=== PATIENT | male | born 1950 | race Caucasian/White ===

== ENCOUNTER 2018-05-07 19:53 | Observation (INO) | payer MEDICARE, OTHER ==
[2018-05-07 19:53] VITALS: BMI 31.9
[2018-05-07 22:56] LABS: BASO # 0.1 K/uL (0.0-0.2); EOS # 0.3 K/uL (0.0-0.7); EOS % 3.6 % (0.0-4.0); HEMOGLOBIN 14.8 g/dL (12.0-18.0); LYMPH # 2.9 K/uL (1.0-4.3); LYMPH % 32.7 % (20.0-40.0); MEAN CELL VOLUME 87.4 fl (80.0-94.0); MEAN CORPUSCULAR HEMOGLOBIN 29.3 pg (27.0-31.0); MEAN CORPUSCULAR HGB CONC 33.5 g/dL (33.0-37.0); MEAN PLATELET VOLUME 8.5 fl (7.2-11.7); MONO # 1.1 K/uL (0.0-0.8); MONO % 12.3 % (0.0-10.0); NEUT # 4.5 K/uL (1.8-7.0); NEUT % 50.4 % (50.0-75.0); NRBC % 0.1 % (0.0-0.0); RBC 5.04 Mil/uL (4.40-5.90); RED CELL DISTRIBUTION WIDTH 13.7 % (11.5-14.5); WHITE BLOOD COUNT 8.9 K/uL (4.8-10.8)
[2018-05-07 23:04] LABS: INR 1.1; PROTHROMBIN TIME 12.1 Seconds (9.8-13.1)
[2018-05-07 23:06] LABS: PARTIAL THROMBOPLASTIN TIME 35.7 Seconds (25.6-37.1)
[2018-05-07 23:09] LABS: D DIMER < 200 ng/mlDDU (0-230)
--- NOTE | 2018-05-07 23:12 | ED PDOC ---
HPI: Chest Pain Time Seen by Provider: 05/07/18 21:47 Chief Complaint (Nursing): Chest Pain Chief Complaint (Provider): Chest Pain History Per: Patient History/Exam Limitations: no limitations Onset/Duration Of Symptoms: Days (x2) Current Symptoms Are (Timing): Still Present Additional Complaint(s): 67 year old Citizen Of [place] male with past history of liver cancer and hypertension, presents to the emergency department with a complaint of left-sided chest pain associated with shortness of breath for 2 days. He denies radiation of pain, nausea, vomiting, or diaphoresis. PCP: Dr. Braydon Gutierrez Past Medical History Reviewed: Historical Data, Nursing Documentation, Vital Signs Vital Signs: Last Vital Signs Temp 98.4 F 05/07/18 20: Pulse 62 05/07/18 20:19 Resp 16 05/07/18 20:19 BP 135/77 05/07/18 20: Pulse Ox 95 05/07/18 20:19 - Medical History PMH: Arthritis, Depression, HTN Denies: Chronic Kidney Disease - Surgical History Surgical History: Cholecystectomy Denies: Pacemaker - Family History Family History: States: Unknown Family Hx - Social History Current smoker - smoking cessation education provided: No Alcohol: None Drugs: Denies - Home Medications Home Medications: Ambulatory Orders Medication Instructions Recorded Bimatoprost [Lumigan] 1 drop OU HS 03/02/12 Bisoprolol 5 mg PO DAILY 03/02/12 Mycophenolate Mofetil [Cellcept] 500 mg PO BID 03/02/12 Cyclosporine, Modified [Neoral] 50 mg PO BID 12/07/12 Vitamin B Complex & Vitamin C 1 tab PO DAILY 12/07/12 [Strovite] Tamsulosin [Flomax] 0.4 mg PO DAILY 04/22/13 Amlodipine Besylate/Benazepril 5 mg PO DAILY 06/03/16 [Amlodipine-Benazepril 2.5-10] Aspirin [Low Dose Aspirin EC] 81 mg PO DAILY 06/03/16 Buspirone HCl 10 mg PO DAILY 06/03/16 Cholecalciferol (Vitamin D3) 1,000 unit PO DAILY 06/03/16 [Children's Vitamin D3] Citalopram Hydrobromide [Celexa] 20 mg PO DAILY 06/03/16 Olopatadine HCl [Pazeo] 1 drp OU DAILY 06/03/16 [id number] Ethyl Esters 1 GM 1 gm PO QID 06/03/16 [Lovaza] Omeprazole 40 mg PO DAILY 06/03/16 Linagliptin [Tradjenta] 5 mg PO DAILY 10/19/16 Ketorolac Tromethamine [Toradol] 10 mg PO TID PRN #12 tab 12/25/16 diaZEpam [Valium] 2 mg PO TID PRN #12 tab 12/25/16 Cyclobenzaprine [Cyclobenzaprine 10 mg PO TID PRN #6 tab 08/02/17 HCl] - Allergies Allergies/Adverse Reactions: Allergies Allergy/AdvReac Type Severity Reaction Status Date / Time codeine Allergy ANAPHYLAXIS Verified 08/01/17 22:06 Review of Systems ROS Statement: Except As Marked, All Systems Reviewed And Found Negative Constitutional: Negative for: Sweats Cardiovascular: Positive for: Chest Pain (left-sided) Respiratory: Positive for: Shortness of Breath Gastrointestinal: Negative for: Nausea, Vomiting Physical Exam - Reviewed Nursing Documentation Reviewed: Yes Vital Signs Reviewed: Yes - Physical Exam Appears: Positive for: Well, Non-toxic, No Acute Distress Head Exam: Positive for: ATRAUMATIC, NORMAL INSPECTION, NORMOCEPHALIC Skin: Positive for: Normal Color Eye Exam: Positive for: Normal appearance, EOMI, PERRL ENT: Positive for: Normal ENT Inspection Neck: Positive for: Normal, Supple Cardiovascular/Chest: Positive for: Regular Rate, Rhythm, Chest Non Tender. Negative for: Murmur Respiratory: Positive for: Normal Breath Sounds. Negative for: Wheezing, Respiratory Distress Gastrointestinal/Abdominal: Positive for: Normal Exam, Soft. Negative for: Tenderness Back: Positive for: Normal Inspection Extremity: Positive for: Normal ROM (upper/lower). Negative for: Pedal Edema, Calf Tenderness Neurologic/Psych: Positive for: Alert, Oriented. Negative for: Motor/Sensory Deficits, Aphasia - Laboratory Results Result Diagrams: 05/07/18 22:45 05/07/18 22:45 Lab Results: PT 12.1 Seconds (9.8-13.1) 05/07/18 22:45 INR 1.1 05/07/18 22:45 APTT 35.7 Seconds (25.6-37.1) 05/07/18 22:45 D-Dimer, Quantitative < 200 ng/mlDDU (0-230) 05/07/18 22:45 - ECG O2 Sat by Pulse Oximetry: 95 (RA) Pulse Ox Interpretation: Normal Medical Decision Making Medical Decision Making: Initial Impression: 67 year old Citizen Of [place] male with chest pain Initial Plan: * EKG * Labs * CXR 23:33 Chest x-ray reviewed by this provider; reveals no active disease Labs reviewed and reveal no clinically significant abnormalities Case discussed with Dr. Gutierrez who will admit for chest pain observation. Scribe Attestation: Documented by Otilia Carlos, acting as a scribe for Danis Calderon MD. Provider Scribe Attestation: All medical record entries made by the Scribe were at my direction and personally dictated by me. I have reviewed the chart and agree that the record accurately reflects my personal performance of the history, physical exam, medical decision making, and the department course for this patient. I have also personally directed, reviewed, and agree with the discharge instructions and disposition. Disposition - Clinical Impression Clinical Impression: Acute chest pain - Patient ED Disposition Is Patient to be Admitted: Yes - Disposition Disposition Time: 23:33 Condition: FAIR - Pt Status Changed To: Hospital Disposition Of: Observation
[2018-05-07 23:21] LABS: ALB/GLOB RATIO 1.4 (1.0-2.1); ALBUMIN 4.4 g/dL (3.5-5.0); ALT/SGPT 29 U/L (21-72); AST/SGOT 30 U/L (17-59); BLOOD UREA NITROGEN 23 mg/dl (9-20); GFR NON-AFRICAN AMERICAN > 60
[2018-05-08] MEDS ORDERED: Pneumococcal 23-Valent Vaccine IM ONE (06:00)
[2018-05-08] MEDS ORDERED: Sodium Chloride 0.9% 50 ML IV ONE (07:20)
[2018-05-08] MEDS ORDERED: Iodixanol 320 MG/ML 100 ML BOTTLE IV ONE (07:20)
--- NOTE | 2018-05-08 08:25 | RAD ---
Date of service: 05/07/2018 HISTORY: chest pain COMPARISON: No prior. FINDINGS: LUNGS: No active pulmonary disease. PLEURA: No significant pleural effusion identified, no pneumothorax apparent. Left hemidiaphragmatic calcified pleural plaque suspect CARDIOVASCULAR: No aortic atherosclerotic calcification present. Mild cardiomegaly probable no pulmonary vascular congestion. OSSEOUS STRUCTURES: Mild thoracic spondylosis. Bilateral shoulder arthrosis. VISUALIZED UPPER ABDOMEN: Normal. OTHER FINDINGS: None. IMPRESSION: No suspect acute cardiopulmonary pathology noted.
[2018-05-08] MEDS ORDERED: BENAZEPRIL PO SCH (09:00)
[2018-05-08] MEDS ORDERED: AMLODIPINE BESYLATE PO SCH (09:00)
[2018-05-08] MEDS: Cholecalciferol 1,000 INTLU TAB PO SCH (10:06)
[2018-05-08] MEDS: Multivitamin With Minerals Tab PO SCH (10:08)
[2018-05-08] MEDS: Pantoprazole 40 mg EC Tab PO SCH (10:08)
[2018-05-08] MEDS: Olopatadine 0.1% Opht SOLN OU SCH (10:08)
--- NOTE | 2018-05-08 10:38 | CT ---
Date of service: 05/08/2018 PROCEDURE: CT Chest with contrast (Pulmonary Angiogram) HISTORY: R/O PE COMPARISON: None available. TECHNIQUE: Axial computed tomography images were obtained of the chest in the pulmonary arterial phase of enhancement. Coronal and sagittal reformatted images were created and reviewed. Intravenous contrast dose: Visipaque 320, 99 cc Radiation dose: Total exam DLP = 390.14 mGy-cm. This CT exam was performed using one or more of the following dose reduction techniques: Automated exposure control, adjustment of the mA and/or kV according to patient size, and/or use of iterative reconstruction technique. FINDINGS: PULMONARY ARTERIES: Unremarkable. No pulmonary embolism. AORTA: No acute findings. No thoracic aortic aneurysm. No aortic atherosclerotic calcification or mural plaque present. LUNGS: Scattered ground-glass opacities identified in the bilateral lung oliver predominately affecting the bilateral lower lobes of uncertain origin. No central airway mass. No left-sided pulmonary mass. There is a small solitary nodule which is noncalcified at the right upper lobe in image 21 measuring 4 mm. PLEURAL SPACES: Unremarkable. No effusion or pneumothorax. HEART: Mild cardiomegaly. No pericardial effusion identified. No pulmonary vascular congestion evident. LYMPH NODES: No significant lymphadenopathy. BONES, CHEST WALL: Unremarkable. No fracture or destructive lesion OTHER FINDINGS: Surgical clips are identified in the upper abdomen bilaterally. IMPRESSION: 1. No CT evidence of pulmonary embolus. 2. Scattered ground-glass opacities appreciate bilaterally in both lungs diffusely but predominantly at the bilateral lower lobes potentially reflecting reversal interstitial pulmonary process. This is a nonspecific pattern. 3. 4 mm solitary nodule right upper lobe for which follow-up chest is advised in 6-12 months depending on patient's risk factors for developing lung cancer.
--- NOTE | 2018-05-08 11:58 | CP.PCM.CON ---
History of Present Illness - History of Present Illness History of Present Illness: 67 year old male past medical history of diabetes , hypertension, liver ca s/p transplant admitted with substernal chest pain. Currently chest pain free. Troponin is negative and EKG reveals old inferior q waves. CT chest and CXR performed no evidence of pulmonary embolism. Past Patient History - Infectious Disease Hx of Infectious Diseases: None - Tetanus Immunizations Tetanus Immunization: Unknown - Past Medical History & Family History Past Medical History?: Yes - Past Social History Alcohol: None Drugs: Denies - CARDIAC Hx Hypertension: Yes Hx Pacemaker: No - PULMONARY Hx Respiratory Disorders: No - NEUROLOGICAL Hx Neurological Disorder: No - HEENT Hx HEENT Problems: Yes (WEARS RX GLASSES) Hx Cataracts: Yes Hx Glaucoma: Yes - RENAL Hx Chronic Kidney Disease: No - ENDOCRINE/METABOLIC Hx Endocrine Disorders: Yes Hx Diabetes Mellitus Type 2: Yes - HEMATOLOGICAL/ONCOLOGICAL Hx AIDS: No Hx Blood Transfusions: No Hx Hepatitis C: Yes Hx Human Immunodeficiency Virus (HIV): No - INTEGUMENTARY Hx Dermatological Problems: No - MUSCULOSKELETAL/RHEUMATOLOGICAL Hx Arthritis: Yes - GASTROINTESTINAL Hx Gastrointestinal Disorders: Yes (HIATAL HERNIA SMALL) Hx Liver Failure: Yes (liver transplant 2006) Other/Comment: Hiatal Hernia - GENITOURINARY/GYNECOLOGICAL Hx Genitourinary Disorders: Yes (ENLARGED PROSTATE) Hx Prostate Problems: Yes (BPH) - PSYCHIATRIC Hx Depression: Yes - SURGICAL HISTORY Hx Cholecystectomy: Yes - ANESTHESIA Hx Anesthesia: Yes Hx Anesthesia Reactions: No Hx Malignant Hyperthermia: No Meds Allergies/Adverse Reactions: Allergies Allergy/AdvReac Type Severity Reaction Status Date / Time codeine Allergy ANAPHYLAXIS Verified 08/01/17 22:06 - Medications Medications: Current Medications Aspirin (Ecotrin) 81 mg PO DAILY [facility] Last Admin: 05/08/18 10:07 Dose: 81 mg Bisoprolol Fumarate (Zebeta) 5 mg PO DAILY [facility] Last Admin: 05/08/18 10:07 Dose: 5 mg Buspirone HCl (Buspar) 10 mg PO DAILY [facility] Last Admin: 05/08/18 10:06 Dose: 10 mg Cholecalciferol (Vitamin D) 1,000 intlu PO DAILY [facility] Last Admin: 05/08/18 10:06 Dose: 1,000 intlu Citalopram Hydrobromide (Celexa) 20 mg PO DAILY [facility] Last Admin: 05/08/18 10:07 Dose: 20 mg Cyclobenzaprine HCl (Flexeril) 10 mg PO TID PRN PRN Reason: Pain, severe (8-10) Cyclosporine (Cyclosporine) 50 mg PO BID [facility] Diazepam (Valium) 2 mg PO TID PRN PRN Reason: Muscle spasm Heparin Sodium (Porcine) (Heparin) 5,000 units SC Q12 [facility]; Protocol Last Admin: 05/08/18 10:09 Dose: 5,000 units Home Med (Amlodipine Besylate/Benazepril [Amlodipine-Benazepril 2.5-10]) 5 mg PO DAILY [facility] Home Med (Bimatoprost [Lumigan]) 1 drop OU HS [facility] Ketorolac Tromethamine (Toradol) 10 mg PO TID PRN PRN Reason: Pain, moderate (4-7) Multivitamins/Minerals (Therapeutic-M Tab) 1 tab PO DAILY [facility] Last Admin: 05/08/18 10:08 Dose: 1 tab Mycophenolate Mofetil (Cellcept Cap) 500 mg PO BID [facility] Last Admin: 05/08/18 11:47 Dose: Not Given Olopatadine HCl (Patanol 0.1% Opht Soln) 1 drop OU DAILY [facility] Last Admin: 05/08/18 10:08 Dose: 1 drop [id number]-[id number] Ethyl Esters (Lovaza) 1 gm PO QID [facility] Pantoprazole Sodium (Protonix Ec Tab) 40 mg PO DAILY [facility] Last Admin: 05/08/18 10:08 Dose: 40 mg Sitagliptin Phosphate (Januvia) 50 mg PO DAILY [facility] Last Admin: 05/08/18 10:07 Dose: 50 mg Tamsulosin HCl (Flomax) 0.4 mg PO DAILY [facility] Last Admin: 05/08/18 10:07 Dose: 0.4 mg Physical Exam - Constitutional Appears: Well - Neck Exam Neck exam: Positive for: Normal Inspection - Respiratory Exam Respiratory Exam: Clear to Auscultation Bilateral - Cardiovascular Exam Cardiovascular Exam: REGULAR RHYTHM - GI/Abdominal Exam GI & Abdominal Exam: Normal Bowel Sounds - Extremities Exam Extremities exam: Positive for: normal inspection Results - Vital Signs Recent Vital Signs: Last Vital Signs Temp 97.7 F 05/08/18 08:16 Pulse 63 05/08/18 08:16 Resp 18 05/08/18 08:16 BP 120/74 05/08/18 08:16 Pulse Ox 95 05/08/18 08:16 - Labs Result Diagrams: 05/07/18 22:45 05/07/18 22:45 Labs: Laboratory Results - last 24 hr 05/07/18 05/07/18 05/07/18 22:45 22:45 22:45 WBC 8.9 RBC 5.04 Hgb 14.8 Hct 44.0 MCV 87.4 MCH 29.3 MCHC 33.5 RDW 13.7 Plt Count 310 MPV 8.5 Neut % (Auto) 50.4 Lymph % (Auto) 32.7 Titus % (Auto) 12.3 H Eos % (Auto) 3.6 Baso % (Auto) 1.0 Neut # (Auto) 4.5 Lymph # (Auto) 2.9 Titus # (Auto) 1.1 H Eos # (Auto) 0.3 Baso # (Auto) 0.1 PT 12.1 INR 1.1 APTT 35.7 D-Dimer, Quantitative < 200 Sodium 142 Potassium 3.7 Chloride 100 Carbon Dioxide 27 Anion Gap 19 BUN 23 H Creatinine 1.0 Est GFR ( Amer) > 60 Est GFR (Non-Af Amer) > 60 POC Glucose (mg/dL) Random Glucose 110 Calcium 10.0 Total Bilirubin 1.7 H AST 30 ALT 29 Alkaline Phosphatase 72 Troponin I < 0.0120 Total Protein 7.5 Albumin 4.4 Globulin 3.1 Albumin/Globulin Ratio 1.4 05/08/18 05/08/18 05/08/18 05:48 07:00 11:08 WBC RBC Hgb Hct MCV MCH MCHC RDW Plt Count MPV Neut % (Auto) Lymph % (Auto) Titus % (Auto) Eos % (Auto) Baso % (Auto) Neut # (Auto) Lymph # (Auto) Titus # (Auto) Eos # (Auto) Baso # (Auto) PT INR APTT D-Dimer, Quantitative Sodium Potassium Chloride Carbon Dioxide Anion Gap BUN Creatinine Est GFR ( Amer) Est GFR (Non-Af Amer) POC Glucose (mg/dL) 108 162 H Random Glucose Calcium Total Bilirubin AST ALT Alkaline Phosphatase Troponin I < 0.0120 Total Protein Albumin Globulin Albumin/Globulin Ratio Assessment & Plan - Assessment and Plan (Free Text) Assessment: #1 Chest Pain: Echocardiogram to assess LVEF, q waves on EKG #2 Myocardial perfusion stress test evaluate chest pain
[2018-05-08] MEDS: Omega-3-Acid Ethyl Esters 1 GM Cap PO SCH ×4 (12:19→21:00)
--- NOTE | 2018-05-08 15:20 | CARD ---
APPROVED REPORT Date of service: 05/07/2018 EKG Measurement Heart [id number] <Conclusion> Normal sinus rhythm Minimal voltage criteria for LVH, may be normal variant Inferior infarct, age undetermined Abnormal ECG
[2018-05-08] MEDS ORDERED: Patient's Own Med (Bimatoprost [Lumigan] 1 DROP) OU SCH (22:00)
--- NOTE | 2018-05-08 23:01 | CARD ---
APPROVED REPORT Date of service: 05/08/2018 EXAM: Two-dimensional and M-mode echocardiogram with Doppler and color Doppler. Other Information Quality : GoodRhythm : INDICATION Chest Pain 2D DIMENSIONS IVSd1.13 (0.7-1.1cm)LVDd4.52 (3.9-5.9cm) LVOT Diameter1.96 (1.8-2.4cm)PWd0.85 (0.7-1.1cm) IVSs1.84 (0.8-1.2cm)LVDs2.79 (2.5-4.0cm) FS (%) 38.3 %PWs1.36 (0.8-1.2cm) M-Mode DIMENSIONS Left Atrium (MM)3.41 (2.5-4.0cm)IVSd1.38 (0.7-1.1cm) Aortic Root3.06 (2.2-3.7cm)LVDd4.68 (4.0-5.6cm) Aortic Cusp Exc.1.97 (1.5-2.0cm)PWd1.32 (0.7-1.1cm) IVSs2.03 cmFS (%) 35 % LVDs3.06 (2.0-3.8cm)PWs1.44 cm Aortic Valve AoV Peak Cuscgynj665.8cm/sAoV VTI29.4cmAO Peak GR.7mmHg LVOT Peak Zzgbflga70.6cm/sLVOT VTI19.09cmAO Mean GR.4mmHg OLINDA (VMAX)0.28me7OTV (VTI)0.98cm2 Mitral Valve MV E Lovcjhcq84.8cm/sMV DECEL ADDO328otLS A Uczmiohy27.6cm/s MV KFH41udG/A ratio0.6MVA (PHT)2.73cm2 TDI Lateral E' Peak V9.61cm/sMedial E' Peak V7.33cm/sE/Lateral E'5.5 E/Medial E'7.2 Tricuspid Valve TR Peak Ncvixnpv535ov/sRAP IUFJZAOD28voOwAW Peak Gr.25mmHg [id number] LEFT VENTRICLE The left ventricle is normal size. There is normal left ventricular wall thickness. The left ventricular systolic function is normal. The estimated ejection fraction is 60-65% No regional wall motion abnormalities noted.. Transmitral Doppler flow pattern is Grade I-abnormal relaxation pattern. No left ventricle thrombus noted on this study. There is no ventricular septal defect visualized. There is no left ventricular aneurysm. There is no mass noted in the left ventricle. RIGHT VENTRICLE The right ventricle is mildly dilated. There is normal right ventricular wall thickness. The right ventricular systolic function is normal. ATRIA The left atrium is moderately dilated. The right atrium size is normal. The interatrial septum is intact with no evidence for an atrial septal defect. AORTIC VALVE The aortic valve is normal in structure. No aortic regurgitation is present. There is no aortic valvular stenosis. There is no aortic valvular vegetation. MITRAL VALVE The mitral valve is normal in structure. There is no evidence of mitral valve prolapse. There is no mitral valve stenosis. There is mild mitral valve regurgitation noted. TRICUSPID VALVE The tricuspid valve is normal in structure. There is mild tricuspid valve regurgitation noted. RVSP is calculated at 32 mm Hg. There is no tricuspid valve prolapse or vegetation. There is no tricuspid valve stenosis. PULMONIC VALVE The pulmonary valve is normal in structure. There is no pulmonic valvular regurgitation. There is no pulmonic valvular stenosis. GREAT VESSELS The aortic root is normal in size. The ascending aorta is normal in size. The pulmonary artery is normal. The IVC is not will visualized. PERICARDIAL EFFUSION There is no pericardial effusion. There is no pleural effusion. <Conclusion> The estimated ejection fraction is 60-65% Transmitral Doppler flow pattern is Grade I-abnormal relaxation pattern. The left atrium is moderately dilated. There is mild mitral valve regurgitation noted. There is mild tricuspid valve regurgitation noted. RVSP is calculated at 32 mm Hg. The IVC is not will visualized.
--- NOTE | 2018-05-09 05:34 | HP ---
HISTORY OF PRESENT ILLNESS: This is a 67-year-old male with history of multiple medical problems including liver transplant, on immunosuppressive therapy, was admitted through emergency room for chest pain, mostly typical chest pain, left-sided, increased with breathing. The patient has been complaining of this chest pain for the last 2 days prior to this admission. The patient's symptoms also were associated with shortness of breath, and the pain is radiated to the left upper extremity. Other review of system is negative. ALLERGIES: POSITIVE ALLERGY FOR CODEINE. MEDICATIONS: Reviewed as per MAR and ordered. SOCIAL HISTORY: No history of smoking, EtOH, or substance abuse. FAMILY HISTORY: Noncontributory. PAST MEDICAL HISTORY: Hypertension, hepatitis C, liver cirrhosis, status post liver transplant, degenerative spine disease. PHYSICAL EXAMINATION: GENERAL: The patient is in bed, not in any cardiopulmonary distress. VITAL SIGNS: Blood pressure 144/79, temperature 98.3, respiratory rate 16, and pulse 68. HEENT: Pupils equal and reactive to light. Normal-appearing mucosa of the conjunctivae, oropharynx, and nasal membrane mucosa. NECK: Supple. No JVD. No carotid bruit. No lymph node. No thyromegaly. CHEST AND LUNGS: Bilateral symmetrical expansion. Good air exchange. No rales, no rhonchi. CARDIOVASCULAR SYSTEM: PMI not localized. S1, S2. No additional sounds. ABDOMEN: Normoactive bowel sounds. No tenderness. No organomegaly. No masses. EXTREMITIES: No cyanosis, no clubbing, no edema. CENTRAL NERVOUS SYSTEM: Alert, awake, oriented x3. No neurological deficit could be appreciated. ASSESSMENT: Chest pain, rule out myocardial infarction and acute coronary syndrome. Differential diagnoses include: 1. Pulmonary embolism. 2. Hypertension. 3. Status post liver transplant, on immunosuppressive therapy. PLAN: We will do CT angiogram, cardiology consult. Follow the recommendations. Resume the patient's home medications. Braydon Gutierrez MD
[2018-05-09] MEDS: Olopatadine 0.1% Opht SOLN OU SCH (10:51)
[2018-05-09] MEDS: Omega-3-Acid Ethyl Esters 1 GM Cap PO SCH ×4 (10:52→21:37)
[2018-05-09] MEDS: Multivitamin With Minerals Tab PO SCH (10:52)
[2018-05-09] MEDS: Cholecalciferol 1,000 INTLU TAB PO SCH (10:53)
[2018-05-09] MEDS: Pantoprazole 40 mg EC Tab PO SCH (10:53)
--- NOTE | 2018-05-09 10:57 | CP.PCM.CON ---
History of Present Illness - History of Present Illness History of Present Illness: This 67 year old male with a prior history of liver cancer and subsequent organ transplant presented to the emergency department with a 2 day history of substernal and left sided chest pain associated with shortness of breath. The pain was not associated with diaphoresis or nausea, but did radiate to the back and left arm. He states that he has been having symptoms similar to this for a number of years now without a definitive diagnosis. He takes all his medications as prescribed which includes MMF and cyclosporine as well as antihypertensives and antidiabetics, but also ranitidine and famotidine both (for long standing GERD). Chest CTA was negative for pulmonary embolism, but did show some ground glass opacities primarily in the lower lobes of both lungs. He denies having had cough or sputum expectoration and has been breathing comfortably with normal SpaO2 since the pain has subsided. I myself do not see the RUL nodule that was reported on the CT exam. Review of Systems - Review of Systems All systems: reviewed and no additional remarkable complaints except - Cardiovascular Cardiovascular: Chest Pain at Rest, Paroxysmal Nocturnal Dyspnea - Respiratory Respiratory: Dyspnea on Exertion - Gastrointestinal Gastrointestinal: Heartburn - Musculoskeletal Musculoskeletal: Back Pain, Muscle Weakness (LUE), Numbness (LUE), Radiating Pain into Limb (LUE) - Integumentary Integumentary: Change in Pigmentation (hyperpigmented patches over back) Past Patient History - Infectious Disease Hx of Infectious Diseases: None - Tetanus Immunizations Tetanus Immunization: Unknown - Past Medical History & Family History Past Medical History?: Yes - Past Social History Smoking Status: Never Smoked Chewing Tobacco Use: No Cigar Use: No Alcohol: None Drugs: Denies - CARDIAC Hx Hypertension: Yes - PULMONARY Hx Sleep Apnea: Yes - NEUROLOGICAL Hx Neurological Disorder: No - HEENT Hx HEENT Problems: Yes (WEARS RX GLASSES) Hx Cataracts: Yes Hx Glaucoma: Yes - RENAL Hx Chronic Kidney Disease: No - ENDOCRINE/METABOLIC Hx Diabetes Mellitus Type 2: Yes - HEMATOLOGICAL/ONCOLOGICAL Hx Blood Transfusions: No Hx Cancer: Yes (liver) Hx Hepatitis C: Yes Hx Human Immunodeficiency Virus (HIV): No - INTEGUMENTARY Hx Dermatological Problems: No - MUSCULOSKELETAL/RHEUMATOLOGICAL Hx Arthritis: Yes Hx Back Pain: Yes (remote lumbar epidurals?) Other/Comment: Cervical disk disease - GASTROINTESTINAL Hx Gastrointestinal Disorders: Yes (HIATAL HERNIA SMALL) Hx Gastroesophageal Reflux: Yes - GENITOURINARY/GYNECOLOGICAL Hx Genitourinary Disorders: Yes (ENLARGED PROSTATE) Hx Prostate Problems: Yes (BPH) - PSYCHIATRIC Hx Depression: Yes - SURGICAL HISTORY Hx Cholecystectomy: Yes Other/Comment: liover transplant at [facility] - ANESTHESIA Hx Anesthesia: Yes Hx Anesthesia Reactions: No Hx Malignant Hyperthermia: No Meds Allergies/Adverse Reactions: Allergies Allergy/AdvReac Type Severity Reaction Status Date / Time codeine Allergy ANAPHYLAXIS Verified 08/01/17 22:06 - Medications Medications: Current Medications Aspirin (Ecotrin) 81 mg PO DAILY [facility] Last Admin: 05/09/18 10:53 Dose: 81 mg Bisoprolol Fumarate (Zebeta) 5 mg PO DAILY [facility] Last Admin: 05/09/18 10:53 Dose: 5 mg Buspirone HCl (Buspar) 10 mg PO DAILY [facility] Last Admin: 05/09/18 10:51 Dose: 10 mg Cholecalciferol (Vitamin D) 1,000 intlu PO DAILY [facility] Last Admin: 05/09/18 10:53 Dose: 1,000 intlu Citalopram Hydrobromide (Celexa) 20 mg PO DAILY [facility] Last Admin: 05/09/18 10:54 Dose: 20 mg Cyclobenzaprine HCl (Flexeril) 10 mg PO TID PRN PRN Reason: Pain, severe (8-10) Last Admin: 05/09/18 10:54 Dose: 10 mg Cyclosporine (Cyclosporine) 50 mg PO BID [facility] Diazepam (Valium) 2 mg PO TID PRN PRN Reason: Muscle spasm Heparin Sodium (Porcine) (Heparin) 5,000 units SC Q12 [facility]; Protocol Last Admin: 05/09/18 10:53 Dose: 5,000 units Home Med (Amlodipine Besylate/Benazepril [Amlodipine-Benazepril 2.5-10]) 5 mg PO DAILY [facility] Home Med (Bimatoprost [Lumigan]) 1 drop OU HS [facility] Ketorolac Tromethamine (Toradol) 10 mg PO TID PRN PRN Reason: Pain, moderate (4-7) Multivitamins/Minerals (Therapeutic-M Tab) 1 tab PO DAILY [facility] Last Admin: 05/09/18 10:52 Dose: 1 tab Mycophenolate Mofetil (Cellcept Cap) 500 mg PO BID [facility] Last Admin: 05/09/18 10:51 Dose: 500 mg Olopatadine HCl (Patanol 0.1% Opht Soln) 1 drop OU DAILY [facility] Last Admin: 05/09/18 10:51 Dose: 1 drop Kjlgc-[id number] Ethyl Esters (Lovaza) 1 gm PO QID [facility] Last Admin: 05/09/18 10:52 Dose: 1 gm Pantoprazole Sodium (Protonix Ec Tab) 40 mg PO DAILY [facility] Last Admin: 05/09/18 10:53 Dose: 40 mg Sitagliptin Phosphate (Januvia) 50 mg PO DAILY [facility] Last Admin: 05/09/18 10:51 Dose: 50 mg Tamsulosin HCl (Flomax) 0.4 mg PO DAILY [facility] Last Admin: 05/09/18 10:52 Dose: 0.4 mg Physical Exam - Additional Findings Additional findings: Well nourished, well developed, in no acute distress. Alert and well oriented X 3, cooperative with exam. Sitting up on the edge of bed, no dependant edema, no cyanosis. No calf tenderness, extremities warm to touch and pink. Hyperpigmented patches are noted over the posterior chest and lower back. Pharynx is pink and moist w/o exudate. Neck is supple and traches midline, no visible JVD, no carotid bruit. No dullness on chest percussion, equal expansion, mild tenderness left periscapular area. Breath sounds are well heard bilaterally w/o audible wheezes. Few dry rales in bases. No rhonchi or bronchial breath sounds. Heart sounds well heard, regular rhythm. Multiple healed abdominal scars, no tenderness, normal BS. Results - Vital Signs Recent Vital Signs: Last Vital Signs Temp 98.1 F 05/09/18 07:54 Pulse 66 05/09/18 07:54 Resp 18 05/09/18 07:54 BP 137/77 05/09/18 07:54 Pulse Ox 96 05/09/18 07:54 - Labs Result Diagrams: 05/07/18 22:45 05/07/18 22:45 Labs: Laboratory Results - last 24 hr 05/08/18 05/08/18 05/08/18 11:08 14:40 15:59 POC Glucose (mg/dL) 162 H 104 Troponin I < 0.0120 05/08/18 21:35 POC Glucose (mg/dL) 90 Troponin I Assessment & Plan (1) ERIN on CPAP Status: Chronic Priority: High (2) Dyspnea on exertion Status: Chronic Priority: High (3) Dyspnea, paroxysmal nocturnal Status: Chronic Priority: High - Assessment and Plan (Free Text) Plan: Repeat sleep study will be needed as an outpatient after discharge. He has had a sleep study done 10 years ago and is using nasal CPAP based on that test. There may be a need to change the CPAP settings since he does complain that there have been no nocturnal awakenings with cough and shortness of breath. He may also be experiencing gastroesophageal reflux symptoms with aspiration, and this may well account for his persistent substernal chest pain. Follow up CT chest should be done in 3 months (sooner if symptoms return) to monitor the reported RUL nodule and the opacities seen on this exam. I do not feel there is an active infectious process at this time, but close m onitoring for opportunistic lung disease warranted because of immune suppressive therapy. - Date & Time Date: 05/09/18 Time: 10:57
[2018-05-09] MEDS: CYCLOSPORINE, MODIFIED 25 MG CAP PO SCH ×2 (11:17→18:11)
[2018-05-10 00:10] VITALS: RESP 18
--- NOTE | 2018-05-10 01:20 | PN ---
DATE: 05/09/2018 DAILY PROGRESS NOTE SUBJECTIVE: The patient is seen today, 05/09/2018. He is not in any cardiopulmonary distress. PHYSICAL EXAMINATION: VITAL SIGNS: Blood pressure 108/64, temperature 97.8, respiratory rate 16, and pulse 74. HEENT: Pupils are equal and reactive to light. Normal-appearing mucosa of the conjunctivae, oropharynx and nasal membrane mucosa. NECK: Supple. No JVD. No carotid bruit. No lymph node. No thyromegaly. CHEST AND LUNGS: Bilateral symmetrical expansion. Good air exchange. No rales. No rhonchi. CARDIOVASCULAR SYSTEM: PMI not localized. S1 and S2. No additional sounds. ABDOMEN: Normoactive bowel sounds. No tenderness. No organomegaly. No masses. EXTREMITIES: No cyanosis, no clubbing, no edema. CENTRAL NERVOUS SYSTEM: Alert, awake, oriented x3. No neurological deficit could be appreciated. ASSESSMENT: 1. Atypical chest pain, myocardial infarction was ruled out. 2. Status post liver transplantation. PLAN: 1. Follow the stress test that was done by Cardiology. 2. 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 3. Continue current medications. Braydon Gutierrez MD
[2018-05-10 07:50] VITALS: O2SAT 96
[2018-05-10] MEDS: Omega-3-Acid Ethyl Esters 1 GM Cap PO SCH ×2 (09:22→12:28)
[2018-05-10] MEDS: Multivitamin With Minerals Tab PO SCH (09:23)
[2018-05-10] MEDS: Olopatadine 0.1% Opht SOLN OU SCH (09:23)
[2018-05-10] MEDS: Cholecalciferol 1,000 INTLU TAB PO SCH (09:25)
[2018-05-10] MEDS: Pantoprazole 40 mg EC Tab PO SCH (09:26)
[2018-05-10] MEDS: CYCLOSPORINE, MODIFIED 25 MG CAP PO SCH (09:31)
[2018-05-10 11:49] VITALS: BP 125/71; PULSE 66; TEMP 97.9
--- NOTE | 2018-05-10 13:06 | CARD ---
APPROVED REPORT Date of service: 05/09/2018 Protocol: KARI Test Type: Stress Nuclear Medications: CITALOPRAM HYDROBROMIDE 20MG CHOLECALCIFEROL 1000 UNITS BUSPRIONE HCL 10MG BISOPROLOL 5MG BIMATOPROST 1 DROP ASPIRIN 81MG CYCLOBENZAPRINE 10MG AMLODIPINE 5MG OLOPATADINE 1 DROP MYCOPHENOLATE MOFETIL 500MG Medical History: HTN, LIVER TRANSPLANT ON IMMUNOSUPPRESSIVE THERAPY, HEP-C,,LIVER CIRRHOSIS, MUSCLE SPASM, DEGENERATION SPINE DESEASE Target HR: 152 bpm Resting ECG: normal Resting Heart Rate: 71 bpm Resting Blood Pressure: 125/74mmHg submaximum (85%): 129 bpm TEST SUMMARY [id number]. [id number]. PRETESTHYPERV.00:[id number]. PRETESTWARM-[id number]. EXERCISESTAGE 103:[id number]/80.1. EXERCISESTAGE 203:[id number]/60.3. EXERCISESTAGE 301:[id number]/60.1. [id number]/80.3. POST EXERCISE Reason for Termination: Fatigue Target HR: No Max HR: 123 bpm 80% of Maximum Predicted HR: 152 bpm Exercise duration: 07:46 min:sec, 3 Stage Exercise capacity: 9.7METs Max Blood Pressure: 172/60mmHg Blood Pressure response to exercise: normal resting BP - appropriate response Heart Rate response to exercise: appropriate Chest Pain: No, none Angina index: 0 Arrhythmia: Yes, ventricular premature beats-isolated ST Change: No, none Deviation: 0 mm Clinical Indications Under Appropriate Use Criteria Patient with history of hypertension for nuclear stress test Stress EKG Interpretation No st or t waves changes were noticed. One ventricular ectopic noticed at exercises. No chest pain reported. RESTING ECG Rhythm: Sinus Conduction: Normal Arrhythmias: VPC Repolarization: Normal STRESS ECG Rhythm: Sinus Conduction: Normal Arrhythmias: None ST-Segment changes: none EXAM: Myocardial Perfusion REST/STRESS Image QualityGood Imaging Protocol The imaging protocol used to acquire images was Rest Tc-99m/stress Tc-99m 1 day Rest Spect myocardial perfusion imaging was performed in supine position 93 minutes following the injection of 10 mCi of Tc-99 Myoview. Time of rest injection: 7:33 Time of rest imagin:09 At peak stress, the patient was injected intravenously with 30mCi of Tc-99 tetrofosmin after an infusion time of minutes and seconds. Time of stress injection: 10:37 Time of stress imagin:58 Gated Stress Spect was performed 80 minutes after intravenous Tc-99 Myoview injection. The images were gated to evaluate regional wall motion and calculate ventricular ejection fraction. NUCLEAR IMAGE INTERPRETATION Study quality was excellent. Left Ventricular size was Normal at Rest and Stress. Lung uptake was Normal. Left Ventricular ejection fraction is 71%. The rest and stress images show normal perfusion, normal contraction and thickening. LV Perfusion Normal perfusion scan LV Perfusion 1 The rest and stress images show normal perfusion. Wall Motion Normal wall motion. LVEF 71% CONCLUSION 1. Normal nuclear stress test Recommendation Medical therapy
--- NOTE | 2018-05-10 13:11 | CP.PCM.PN ---
Subjective - Date & Time of Evaluation Date of Evaluation: 05/10/18 Time of Evaluation: 13:09 - Subjective Subjective: perfusion scan is normal Objective - Vital Signs/Intake and Output Vital Signs (last 24 hours): Temp Pulse Resp BP Pulse Ox 97.9 F 66 18 125/71 96 05/10/18 11:48 05/10/18 11:48 05/10/18 11:48 05/10/18 11:48 05/10/18 11:48 - Medications Medications: Current Medications Aspirin (Ecotrin) 81 mg PO DAILY [facility] Last Admin: 05/10/18 09:26 Dose: 81 mg Bisoprolol Fumarate (Zebeta) 5 mg PO DAILY [facility] Last Admin: 05/10/18 09:25 Dose: 5 mg Buspirone HCl (Buspar) 10 mg PO DAILY [facility] Last Admin: 05/10/18 09:24 Dose: 10 mg Cholecalciferol (Vitamin D) 1,000 intlu PO DAILY [facility] Last Admin: 05/10/18 09:25 Dose: 1,000 intlu Citalopram Hydrobromide (Celexa) 20 mg PO DAILY [facility] Last Admin: 05/10/18 09:23 Dose: 20 mg Cyclobenzaprine HCl (Flexeril) 10 mg PO TID PRN PRN Reason: Pain, severe (8-10) Last Admin: 05/10/18 09:24 Dose: 10 mg Cyclosporine (Cyclosporine) 50 mg PO BID [facility] Last Admin: 05/10/18 09:31 Dose: 50 mg Diazepam (Valium) 2 mg PO TID PRN PRN Reason: Muscle spasm Heparin Sodium (Porcine) (Heparin) 5,000 units SC Q12 [facility]; Protocol Last Admin: 05/10/18 09:22 Dose: 5,000 units Home Med (Amlodipine Besylate/Benazepril [Amlodipine-Benazepril 2.5-10]) 5 mg PO DAILY [facility] Home Med (Bimatoprost [Lumigan]) 1 drop OU HS [facility] Ketorolac Tromethamine (Toradol) 10 mg PO TID PRN PRN Reason: Pain, moderate (4-7) Multivitamins/Minerals (Therapeutic-M Tab) 1 tab PO DAILY [facility] Last Admin: 05/10/18 09:23 Dose: 1 tab Mycophenolate Mofetil (Cellcept Cap) 500 mg PO BID [facility] Last Admin: 05/10/18 09:21 Dose: 500 mg Olopatadine HCl (Patanol 0.1% Opht Soln) 1 drop OU DAILY [facility] Last Admin: 05/10/18 09:23 Dose: 1 drop Ajclz-5-Mnky Ethyl Esters (Lovaza) 1 gm PO QID [facility] Last Admin: 05/10/18 12:28 Dose: 1 gm Pantoprazole Sodium (Protonix Ec Tab) 40 mg PO DAILY [facility] Last Admin: 05/10/18 09:26 Dose: 40 mg Sitagliptin Phosphate (Januvia) 50 mg PO DAILY [facility] Last Admin: 05/10/18 09:22 Dose: 50 mg Tamsulosin HCl (Flomax) 0.4 mg PO DAILY [facility] Last Admin: 05/10/18 09:25 Dose: 0.4 mg - Labs Labs: 05/07/18 22:45 05/07/18 22:45 PT 12.1 Seconds (9.8-13.1) 05/07/18 22:45 INR 1.1 05/07/18 22:45 APTT 35.7 Seconds (25.6-37.1) 05/07/18 22:45 Assessment and Plan - Assessment and Plan (Free Text) Plan: R/O MS Stress MPI negative for ischemia Pt can be discharged f/u as outpt with
--- NOTE | 2018-05-11 18:56 | DS ---
REASON FOR ADMISSION: This is a 67-year-old [place] male with history of multiple medical problems including liver transplant was admitted for chest pain. COURSE OF HOSPITALIZATION: The patient was admitted to telemetry and myocardial infarction was ruled out by negative cardiac enzymes. The patient have the cardiology consultation done Dr. Orta and pulmonary consultation done by Dr. Mendez. The patient had a CT angiogram that did not show any pulmonary embolism. Also, myocardial perfusion scan was done that did not show any evidence of myocardial ischemia. The patient was discharged home to continued his preadmission medications and follow with liver transplant center in [place] and we will repeat the CAT scan of the chest as an outpatient. FINAL DIAGNOSES: 1. Nonspecific chest pain. 2. Hypertension. 3. Status post liver transplant. [facility] MD Matt [facility] # [phone]
== END 2018-05-10 14:56 | disposition home or self-care (01) ==
LOC: H.ER 19:53 → H.ERHOLD 23:33 → H.TEL 05-08 03:06
PROVIDERS: ADMIT Internal Medicine; ATTEND Internal Medicine
DX: R07.89 Other chest pain (principal); E11.9 Type 2 diabetes mellitus without complications; G47.30 Sleep apnea, unspecified; H40.9 Unspecified glaucoma; I10 Essential (primary) hypertension; Z86.711 Personal history of pulmonary embolism; K21.9 Gastro-esophageal reflux disease without esophagitis; Z86.19 Personal history of other infectious and parasitic diseases; N40.0 Benign prostatic hyperplasia without lower urinary tract symptoms; Z79.82 Long term (current) use of aspirin; Z85.05 Personal history of malignant neoplasm of liver; Z90.49 Acquired absence of other specified parts of digestive tract; Z94.4 Liver transplant status; F32.9 Major depressive disorder, single episode, unspecified; H26.9 Unspecified cataract; K44.9 Diaphragmatic hernia without obstruction or gangrene; M19.90 Unspecified osteoarthritis, unspecified site; Z79.899 Other long term (current) drug therapy; M54.9 Dorsalgia, unspecified; Z23 Encounter for immunization
CPT/HCPCS: 36415; 71045; 71275; 78452; 80053; 82948; 84484; 85025; 85378; 85610; 85730; 87804; 90732; 93005; 93017; 93306; 99285; A9502; G0009; G0378; J1644; J7515; J7517; Q9967